=== PATIENT | female | born 1940 | race Caucasian/White ===

== ENCOUNTER 2016-07-17 21:30 | Emergency (ER) | payer MEDICARE, OTHER ==
[~2016-07-17 21:30] MED LIST: ARICEPT10 MG PO; ASPIR-TRIN325 MG PO; CELEXA10 MG PO; CIPRO500 MG PO; FLAGYL500 MG PO; LISINOPRIL20 MG PO; MAALOX DPS30 ML PO; NEURONTIN300 MG PO; NITROSTAT0.4 MG SL; SURFAK240 MG PO; TYLENOL-DPS650 MG PO
--- NOTE | 2016-07-18 04:47 | ER ---
ADMIT: 07/17/2016 RM/LOC: ER [facility] MR#: [id number] [address] [address] [address] [place] [address] Emergency Room Report SEX: F AGE: 75 : 1940 DATE: 07/17/2016 The patient is a 75-year-old female, well known to this physician and institution, complaining of typical epigastric to lower chest discomfort, associated with eructations. Denies any other associated symptoms. The patient is status post normal heart cath in 2005, most recent cardiac evaluation in 2013 with negative ischemic evaluation. Exam remarkable for anxious, obviously demented female, no acute distress, with normal vital signs, EKG, chest x-ray. Slightly elevated WBC 17.3, lactic 0.8, CRP 11, lipase 126. D-dimer 0.57. BN peptide 647, troponin less than 0.015. Chest x- ray, negative. The patient was given GI cocktail with relief of symptoms. Home with the advice of frequent small meals, Maalox as needed. Follow up Lala Beyer next week as needed. Bob Wiggins MD/ marcos JOB #: [id number] CC: Bob Wiggins MD, Attending Physician Lala Beyer, Family Physician Lala Beyer MD
== END 2016-07-17 23:22 | disposition home or self-care (01) ==
LOC: ER 21:30
DX: K21.9 Gastro-esophageal reflux disease without esophagitis (principal); I10 Essential (primary) hypertension; E78.00 Pure hypercholesterolemia, unspecified

== ENCOUNTER 2016-10-17 22:30 | Emergency (ER) | payer MEDICARE, OTHER ==
--- NOTE | 2016-10-18 19:09 | ER ---
ADMIT: 10/17/2016 RM/LOC: ER [facility] MR#: [id number] [address] [address] [address] [place] [address] Emergency Room Report SEX: F AGE: 76 : 1940 DATE: 10/17/2016 HISTORY OF PRESENT ILLNESS: The patient is a 76-year-old female with past medical history of hypertension, came to the ER with chief complaint of chest pain, which started at 8 p.m. and is sharp and is moderate to severe, increases with palpation of the chest and is on the 2 specific points on the anterior left chest. The patient states she never had similar chest pain in the past and is started while she was resting, the patient states any movement and deep breathing and palpation over the area increases the pain. PHYSICAL EXAMINATION: GENERAL: The patient is in mild to moderate distress. VITAL SIGNS: Stable. HEAD AND NECK: Normal. CHEST: Clear bilaterally. HEART: Normal heart sounds without any gallops or murmurs. CHEST: Two suprasternal and left anterior lower chest point tenderness, which is per patient, same place that hurts. ABDOMEN: Soft, nontender, and the rest of the physical exam is noncontributory and negative. EKG was negative for any ST or T changes or Q-waves or arrhythmia, chest x-ray did not show any acute changes, the patient received aspirin 324 mg p.o. in the ER, the patient received 1 dose of nitroglycerin 0.4 mg sublingual, it did not change the pain. The patient received a dose of [place] in the ER, which per the patient resolved the pain substantially. Troponin I is negative, and the rest of the lab works were also negative and noncontributory. The patient is stable in no pain or distress and was discharged to home with diagnosis of chest pain/resolved. To be followed up with primary doctor as needed. Will Lopez MD/ marcos JOB #: [id number] CC: Will Lopez MD, Attending Physician Lala Beyer, Family Physician
== END 2016-10-18 00:35 | disposition home or self-care (01) ==
LOC: ER 22:30
DX: R07.9 Chest pain, unspecified (principal); I10 Essential (primary) hypertension; Z87.440 Personal history of urinary (tract) infections